=== PATIENT | female | born 1990 | race Caucasian/White ===

== ENCOUNTER 2021-07-18 00:22 | Inpatient (IN) | payer BC, OTHER ==
[2021-07-18] MEDS ORDERED: Acetaminophen 325 MG Tab PO PRN ×2 (00:36→17:33)
[2021-07-18] MEDS ORDERED: Lactated Ringers 1,000 ML IV SCH (00:45)
[2021-07-18] MEDS ORDERED: Nalbuphine 10 MG/1 ML Vial IM ONE ×2 (01:06→11:15)
[2021-07-18] MEDS ORDERED: Misoprostol 400 MCG (4 X 100 MCG TAB) RECTAL PRN ×2 (01:08→17:33)
[2021-07-18] MEDS ORDERED: Methylergonovine 0.2 MG/1 ML Amp IM PRN (01:08)
[2021-07-18] MEDS ORDERED: Tranexamic Acid 1,000 MG in Sodium Chloride 0.9% 100 ML IV PRN ×2 (01:08→17:33)
[2021-07-18] MEDS ORDERED: Lactated Ringers 1,000 ML IV ONE (01:08)
[2021-07-18] MEDS ORDERED: Lidocaine 1% 30 ML SDV INJECT PRN (01:08)
[2021-07-18] MEDS ORDERED: Carboprost Tromethamine 250 MCG/1 ML Amp IM PRN ×2 (01:08→17:33)
[2021-07-18] MEDS: Misoprostol 25 MCG (1/4 of 100 MCG) Tab VAG PRN ×2 (01:25→05:29)
[2021-07-18] MEDS ORDERED: Calcium Carbonate 500 MG Tab.Chew PO PRN (02:23)
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
[2021-07-18] MEDS: Lactated Ringers 1,000 ML IV SCH ×3 (09:56→15:45)
[2021-07-18] MEDS: Oxytocin/Normal Saline 30 UNIT/500 ML BAG IV SCH ×2 (09:57→19:15)
[2021-07-18] MEDS: Sodium Chloride 0.9% 10 ML Syringe FLUSH SCH ×2 (11:47→22:41)
[2021-07-18] MEDS: Ondansetron 4 MG/2 ML SDV IVPUSH PRN ×2 (12:19→16:05)
[2021-07-18] MEDS ORDERED: fentaNYL 100 MCG/2 ML SDV ONE ×2 (12:35→16:14)
[2021-07-18] MEDS ORDERED: EPINEPHrine 1 MG/ML SDV ONE ×2 (12:36→16:15)
--- NOTE | 2021-07-18 13:30 | PCM.PRNOTE ---
- Free Text/Narrative Note: Requested to provide analgesia to full term patient in severe pain. Upon entering the room, patient is sitting on edge of bed complaining of severe abdominal/pelvic pain and discomfort. Procedure was discussed with patient including adverse outcomes and expectations. Pt consented to analgesia, SAB/IT. Pt placed into a proper sitting position. Landmarks for SAB/IT were identified and marked. Hands were washed and appropriate PPE was applied. Back was prepped with betadine x3. A sterile, transparent, fenestrated drape was applied. Excess betadine was removed. Using 3 mL of a 1% lidocaine solution, a skin wheel was placed at the L2/L3 interspace. A 24 ga (4 inch) Pencan spinal needle was inserted until positive for CSF. Negative for heme or paresthesias. Injected fentanyl 30 mcg, sufentanil 25 mcg, and 7.5 mg of a 0.75% bupivacaine solution with an epi wash. Pt was placed left lateral tilt position for approximately 20 minutes. There were zero complications or adverse outcomes. Will continue to monitor. Procedure Date & Time: 07/18/2021 [id number]
[2021-07-18] MEDS ORDERED: fentaNYL 100 MCG/2 ML SDV IVPUSH ONE (15:30)
--- NOTE | 2021-07-18 16:57 | PCM.PRNOTE ---
- Free Text/Narrative Note: Requested to provide analgesia to full term patient in severe pain. Upon entering the room, patient is sitting on edge of bed complaining of severe abdominal/pelvic pain and discomfort. Procedure was discussed with patient including adverse outcomes and expectations. Pt consented to analgesia, SAB/IT. Pt placed into a proper sitting position. Landmarks for SAB/IT were identified and marked. Hands were washed and appropriate PPE was applied. Back was prepped with betadine x3. A sterile, transparent, fenestrated drape was applied. Excess betadine was removed. Using 3 mL of a 1% lidocaine solution, a skin wheel was placed at the L2/L3 interspace. A 24 ga (4 inch) Pencan spinal needle was inserted until positive for CSF. Negative for heme or paresthesias. Injected fentanyl 20 mcg, sufentanil 25 mcg, and 9 mg of a 0.75% bupivacaine solution with an epi wash. Pt was placed left lateral tilt position for approximately 20 minutes. There were zero complications or adverse outcomes. Will continue to monitor. Procedure Date & Time:
[2021-07-18] MEDS ORDERED: Simethicone 80 MG Tab.Chew PO PRN (17:33)
[2021-07-18] MEDS ORDERED: Oxytocin 10 Units/1 ML SDV IM PRN (17:33)
[2021-07-18] MEDS ORDERED: Docusate Sodium 100 MG Cap PO PRN (17:33)
[2021-07-18] MEDS ORDERED: Benzocaine/Menthol 20%-0.5% Spray 78 GM Cannister TOP PRN (17:33)
--- NOTE | 2021-07-18 18:12 | PCM.DEL ---
L & D Note - General Info Date of Service: 07/18/21 Mother's Due Date: 07/24/21 - Delivery Note Labor: Augmented by ARM, Augmented by Oxytocin, Induced by Oxytocin Cervical Ripening Method: Misoprostil Delivery Outcome: Livebirth Infant Delivery Method: Spontaneous Vaginal Delivery-Single Infant Delivery Mode: Spontaneous Presentation: Left Occiput Anterior (SHARMIN) Nuchal Cord: Present (Loose nuchal, reduced after delivery), Reduced Anesthesia Type: Intrathecal Amniotic Fluid Description: Clear Episiotomy Type: None Laceration: 1st Degree (Left mediolateral perineal tear repaired by single figure of 8 stitch with 3-0 vicryl. ), Perineal Suture type: Vicryl Suture size: 3-0 Placenta: Intact, Spontaneous Cord: 3 Vessels Estimated Blood Loss: 350 Resuscitation Needed: Yes [place]: Bulb Syringe, Stimulated, Warmed Provider: Diane Cunningham Score 1 min: 3 (4 breaths PPV given) Score 5 min: 9 Second Stage Interventions: Reports: Encouragement Given, Laboring Down, Pushing Effectively, Pushing, Stirrups/Leg Supports Delivery Comments (Free Text/Narrative):: Date: 07/18/2020 at 1704 Attending: Dr. Diane Cunningham 1st Assist: XIMENA Taylor Brief History: Soledad is a 31yo G2, now P2002, presenting at 39 and 1/7ths gestational age for induction of labor due to macrosomia. GBS negative. Blood type A Negative. Rhogam given 04/28/2021, Antibody screen negative at that time. All infectious labs negative. complications include obesity, i mpaired glucose tolerance, macrosomia, maternal Rh negative status, and mild Anemia of . Soledad was brought in at approximately midnight for planned IOL. Vaginal cytotec placed following favorable krishnan score, at 0130, second dose placed at 0530. Labored in the tub for about 30 minutes, before Pitocin was started at 0945. Nubaine 20mg IM given at approximately 11am for increasing contraction pain. Intrathecal analgesia given when patient approx. 5cm dilated at about 1245. Artificial Rupture of Membranes performed at 1310 with clear fluid and head confirmed to be well applied to cervix. Second intrathecal administered at approximately 1650 and patient was found to be complete and delivered at 1704. Stage I labor about 7 hours, Stage II 14 min. Stage III 3 min. Delivery: With patient in dorsal lithotomy position, she delivered a viable female in the SHARMIN position over intact perineum. Patient pushed through 4 contractions, with spontaneous vaginal delivery of a live female infant at 1704, followed by slow delivery of anterior shoulder and rest of with a single loose nuchal cord noted, reduced following delivery, and terminal mec noted. Infant brought immediately to mother's chest. 3-vessel umbilical cord was immediately double clamped and cut, approx. 10ml of cord blood collected. Infant without spontaneous cry, so she was taken to the warmer and 4 breaths of PPV given for resuscitation. Following resuscitation, [id number] initiated and damon hour protected. Apgars of 3 and 9 and 1 and 5 minutes, respectively. Weight 4420g. Length 20.75in Head circumference 14.5in Chest 14.5 in. Abdominal girth 14in. Delivery of intact placenta at approximately 1507 by gentle cord traction and concomitant uterine massage. Labia and vagina inspected, first degree laceration noted at left mediolateral perineum, repaired with a single figure of 8 stitch using 3-0 vicryl, adequate analgesia supplied via intrathecal. EBL: 350 ml. Mother and baby to stay in room to continue [id number] and initiate . - General Info Date of Service: 07/18/21 - Patient Data Vitals - Most Recent: Last Vital Signs Temp 97.8 F 07/18/21 14:45 Pulse 72 07/18/21 16:15 Resp 20 07/18/21 16:15 BP 131/78 07/18/21 16:15 Pulse Ox 97 07/18/21 13:45 Weight - Most Recent: 84.368 kg Lab Results Last 24 Hours: Laboratory Results - last 24 hr 07/18/21 07/18/21 Range/Units 00:35 01:05 WBC 12.3 H (5.0-10.0) 10^3/uL RBC 4.51 (4.2-5.4) 10^6/uL Hgb 11.4 L (12.0-16.0) g/dL Hct 35.7 L (37.0-47.0) % MCV 79.2 L D (80-100) fL MCH 25.3 L (27.0-34.0) pg MCHC 31.9 L (33.0-35.0) g/dL Plt Count 250 (150-450) 10^3/uL SARS-CoV-2 RNA ([place]) Negative (NEGATIVE) Med Orders - Current: Current Medications Acetaminophen (Acetaminophen 325 Mg Tab) 650 mg PO Q6H PRN PRN Reason: Pain/Fever Benzocaine/Menthol (Benzocaine/Menthol 20%-0.5% [place] 78 Gm Cannister) 0 gm TOP Q4H PRN PRN Reason: Perineal comfort measures Calcium Carbonate/Glycine (Calcium Carbonate 500 Mg Tab.Chew) 1,000 mg PO Q2H PRN PRN Reason: Heartburn Last Admin: 07/18/21 02:34 Dose: 1,000 mg Documented by: Carboprost Tromethamine (Carboprost Tromethamine 250 Mcg/1 Ml Amp) 250 mcg IM ASDIRECTED PRN PRN Reason: Excessive vaginal bleeding Docusate Sodium (Docusate Sodium 100 Mg Cap) 100 mg PO BID PRN PRN Reason: Constipation Lactated Ringer's (Ringers, Lactated) 1,000 mls @ 125 mls/hr IV ASDIRECTED HIRAL Last Admin: 07/18/21 15:45 Dose: 125 mls/hr Documented by: Tranexamic Acid 1,000 mg/ (Sodium Chloride) 110 mls @ 660 mls/hr IV ONETIME PRN PRN Reason: Bleeding Ibuprofen (Ibuprofen 800 Mg Tab) 800 mg PO Q8H PRN PRN Reason: Cramping Lidocaine HCl (Lidocaine 1% 30 Ml Sdv) 30 ml INJECT ASDIRECTED PRN PRN Reason: Perineal Repair Methylergonovine Maleate (Methylergonovine 0.2 Mg/1 Ml Amp) 0.2 mg IM ASDIRECTED PRN PRN Reason: Hemorrhage Misoprostol (Misoprostol 400 Mcg (4 X 100 Mcg Tab)) 800 mcg RECTAL ONETIME PRN PRN Reason: Hemorrhage Ondansetron HCl (Ondansetron 4 Mg/2 Ml Sdv) 4 mg IVPUSH Q4H PRN PRN Reason: Nausea/Vomiting Last Admin: 07/18/21 16:05 Dose: 4 mg Documented by: Oxytocin (Oxytocin 10 Units/1 Ml Sdv) 10 unit IM ONETIME PRN PRN Reason: Bleeding Prenat Multivit/Bulb Filler/Iron/Folic Ac ( Multivitamin With Calcium/Folic Acid/Iron Tab) 1 each PO DAILY HIRAL Simethicone (Simethicone 80 Mg Tab.Chew) 80 mg PO Q4H PRN PRN Reason: Gas Sodium Chloride (Sodium Chloride 0.9% 10 Ml Syringe) 10 ml FLUSH 0900,2100 HIRAL Last Admin: 07/18/21 11:47 Dose: Not Given Documented by: Discontinued Medications Acetaminophen (Acetaminophen 325 Mg Tab) 650 mg PO Q4H PRN PRN Reason: Pain/Fever Carboprost Tromethamine (Carboprost Tromethamine 250 Mcg/1 Ml Amp) 250 mcg IM ASDIRECTED PRN PRN Reason: HEMORRHAGE Epinephrine HCl (Epinephrine 1 Mg/Ml Sdv) Confirm Administered Dose 1 mg .ROUTE .STK-MED ONE Stop: 07/18/21 12:37 Last Admin: 07/18/21 12:47 Dose: Not Given Documented by: Epinephrine HCl (Epinephrine 1 Mg/Ml Sdv) Confirm Administered Dose 1 mg .ROUTE .STK-MED ONE Stop: 07/18/21 16:16 Fentanyl (Fentanyl 100 Mcg/2 Ml Sdv) Confirm Administered Dose 100 mcg .ROUTE .STK-MED ONE Stop: 07/18/21 12:36 Last Admin: 07/18/21 12:47 Dose: Not Given Documented by: Fentanyl (Fentanyl 100 Mcg/2 Ml Sdv) 100 mcg IVPUSH ONETIME ONE; Protocol Stop: 07/18/21 15:31 Last Admin: 07/18/21 15:42 Dose: 100 mcg Documented by: Fentanyl (Fentanyl 100 Mcg/2 Ml Sdv) Confirm Administered Dose 100 mcg .ROUTE .STK-MED ONE Stop: 07/18/21 16:15 Lactated Ringer's (Ringers, Lactated) 1,000 mls @ 9,999 mls/hr IV ASDIRECTED HIRAL Oxytocin/Sodium Chloride (Pitocin In Ns 30 Unit/500 Ml) 30 unit in 500 mls @ 2 mls/hr IV TITRATE HIRAL; Protocol Last Titration: 07/18/21 17:25 Dose: 250 munits/min, 250 mls/hr Documented by: Lactated Ringer's (Ringers, Lactated) 1,000 mls @ 9,999 mls/hr IV BOLUS ONE Stop: 07/18/21 01:13 Tranexamic Acid 1,000 mg/ (Sodium Chloride) 110 mls @ 660 mls/hr IV ONETIME PRN PRN Reason: Bleeding Misoprostol (Misoprostol 400 Mcg (4 X 100 Mcg Tab)) 800 mcg RECTAL ASDIRECTED PRN PRN Reason: Hemorrhage Misoprostol (Misoprostol 25 Mcg (1/4 Of 100 Mcg) Tab) 25 mcg VAG Q4H PRN PRN Reason: Other Last Admin: 07/18/21 05:29 Dose: 25 mcg Documented by: Nalbuphine HCl (Nalbuphine 10 Mg/1 Ml Vial) 20 mg IM ONETIME ONE Stop: 07/18/21 11:16 Last Admin: 07/18/21 11:20 Dose: 20 mg Documented by: Sufentanil Citrate (Sufentanil 50 Mcg/1 Ml Amp) Confirm Administered Dose 50 mcg .ROUTE .STK-MED ONE Stop: 07/18/21 12:37 Last Admin: 07/18/21 12:47 Dose: Not Given Documented by: Sufentanil Citrate (Sufentanil 50 Mcg/1 Ml Amp) Confirm Administered Dose 50 mcg .ROUTE .[employer]-MED ONE Stop: 07/18/21 16:16 - Problem List & Annotations (1) First degree perineal laceration during delivery, delivered SNOMED Code(s): 109408049, 377118879 Code(s): O70.0 - FIRST DEGREE PERINEAL LACERATION DURING DELIVERY Status: Acute Current Visit: Yes (2) Anemia affecting in third trimester SNOMED Code(s): 26531289, 55348338 Code(s): O99.013 - ANEMIA COMPLICATING , THIRD TRIMESTER Status: Acute Current Visit: Yes (3) macrosomia during in third trimester SNOMED Code(s): 628335654, 623749179 Code(s): O36.63X0 - MATERNAL CARE FOR EXCESS GROWTH, THIRD TRIMESTER, UNSP Status: Acute Current Visit: Yes (4) History of delivery by vacuum extraction, currently SNOMED Code(s): 909202121, 165310684 Code(s): O09.299 - SUPRVSN OF PREG W POOR REPRODCTV OR OBSTET HISTORY, UNSP TRI Status: Acute Current Visit: Yes (5) Impaired glucose in , antepartum SNOMED Code(s): 029051655, 822410027 Code(s): O99.810 - ABNORMAL GLUCOSE COMPLICATING Status: Acute Current Visit: Yes (6) Rh negative, maternal SNOMED Code(s): 303069910 Code(s): O26.899 - OTH RELATED CONDITIONS, UNSPECIFIED TRIMESTER; Z67.91 - UNSPECIFIED BLOOD TYPE, RH NEGATIVE Status: Acute Current Visit: Yes Annotation/Comment:: Rhogam given 04/28/2021 - Problem List Review Problem List Initiated/Reviewed/Updated: Yes - My Orders Last 24 Hours: My Active Orders 07/18/21 00:36 Patient Status [ADT] Routine Up ad Batsheva [RC] PER UNIT ROUTINE Vaginal Exam [RC] PRN 07/18/21 00:39 Peripheral IV Care [RC] Q4HR 07/18/21 01:08 Lidocaine 1% [Xylocaine-MPF 1%] 30 ml INJECT ASDIRECTED PRN Methylergonovine [Methergine] 0.2 mg IM ASDIRECTED PRN Ondansetron [Zofran] 4 mg IVPUSH Q4H PRN Saline Lock Insert [OM.PC] Routine 07/18/21 01:15 Lactated Ringers [Ringers, Lactated] 1,000 ml IV ASDIRECTED 07/18/21 09:00 Sodium Chloride 0.9% [Saline Flush] 10 ml FLUSH 0900,2100 07/18/21 17:25 Resuscitation Status Routine 07/18/21 17:33 Acetaminophen [TylenoL] 650 mg PO Q6H PRN Benzocaine/Menthol [Dermoplast Pain Relief 20%-0.5% [place]] See Dose Instructions TOP Q4H PRN Carboprost Tromethamine [Hemabate DS] 250 mcg IM ASDIRECTED PRN Docusate Sodium [Colace] 100 mg PO BID PRN Ibuprofen [Motrin] 800 mg PO Q8H PRN Oxytocin [Pitocin] 10 unit IM ONETIME PRN Simethicone 80 mg PO Q4H PRN Tranexamic Acid [Cyklokapron] 1,000 mg Sodium Chloride 0.9% [Normal Saline] 100 ml IV ONETIME miSOPROStoL [Cytotec] 800 mcg RECTAL ONETIME PRN 07/18/21 17:33 Notify Provider Vital Signs OB [RC] ASDIRECTED Up ad Batsheva [RC] ASDIRECTED Vital Signs [RC] PFP Assess Lochia [WOMSER] Per Unit Routine Assess Uterine Involution [WOMSER] Per Unit Routine Breast Pump [WOMSER] Per Unit Routine Ice Therapy [OM.PC] Per Unit Routine Perineal Care [OM.PC] Per Unit Routine Saline Lock Insert [OM.PC] Urgent Sitz Bath [OM.PC] Per Unit Routine 07/19/21 06:00 CBC W/O DIFF,HEMOGRAM [HEME] Routine 07/19/21 Breakfast Regular Diet [DIET] 07/19/21 09:00 Vit with Ca/FA/Iron [ Plus Iron] 1 each PO DAILY
[2021-07-18] MEDS: Ibuprofen 800 MG Tab PO PRN (20:45)
[2021-07-19] MEDS: Ibuprofen 800 MG Tab PO PRN (04:22)
[2021-07-19] MEDS ORDERED: Prenatal Multivitamin with Calcium/Folic Acid/Iron Tab PO SCH (09:00)
[2021-07-19] MEDS: Sodium Chloride 0.9% 10 ML Syringe FLUSH SCH (09:26)
[2021-07-19] MEDS ORDERED: Ketorolac 10 MG Tab PO ONE (09:56)
--- NOTE | 2021-07-19 10:31 | PCM.PNPP ---
- General Info Date of Service: 07/19/21 Subjective Update: Soledad is up caring for infant this morning. Relays no acute overnight events, does complain of lots of abdominal cramping, not well controlled with motrin and tylenol. She is tolerating diet, ambulating well, voiding appropriately, passing flatus, no bowel movement yet. Normal lochia without clots or excessive bleeding. She is attempting breast feedings every 2-3 hours, except overnight, when she requested nursing to do one overnight feed, and bring the infant back for the next feeding. Milk not yet in, colostrum present, infant latching well at the breast. on ROS Soledad denies head aches, vision changes, fevers, chills, chest pain, sob, RUQ pain, nausea, vomiting. Endorses lower extremity edema. - Review of Systems Systems Review Comment:: As above - Patient Data Vital Signs - Most Recent: Last Vital Signs Temp 98.2 F 07/19/21 08:00 Pulse 62 07/18/21 19:45 Resp 16 07/19/21 08:00 BP 111/63 07/19/21 08:00 Pulse Ox 100 07/18/21 16:38 Weight - Most Recent: 84.368 kg I&O - Last 24 Hours: Intake & Output 07/18/21 07/19/21 07/19/21 22:59 06:59 14:59 Intake Total 3000 Balance 3000 Lab Results - Last 24 Hours: Laboratory Results - last 24 hr 07/19/21 Range/Units 06:20 WBC 13.7 H (5.0-10.0) 10^3/uL RBC 4.16 L (4.2-5.4) 10^6/uL Hgb 10.5 L (12.0-16.0) g/dL Hct 33.5 L (37.0-47.0) % MCV 80.5 (80-100) fL MCH 25.2 L (27.0-34.0) pg MCHC 31.3 L (33.0-35.0) g/dL Plt Count 194 (150-450) 10^3/uL Med Orders - Current: Current Medications Acetaminophen (Acetaminophen 325 Mg Tab) 650 mg PO Q6H PRN PRN Reason: Pain/Fever Last Admin: 07/19/21 06:18 Dose: 650 mg Documented by: Benzocaine/Menthol (Benzocaine/Menthol 20%-0.5% [place] 78 Gm Cannister) 0 gm TOP Q4H PRN PRN Reason: Perineal comfort measures Last Admin: 07/18/21 20:46 Dose: 1 spray Documented by: Calcium Carbonate/Glycine (Calcium Carbonate 500 Mg Tab.Chew) 1,000 mg PO Q2H PRN PRN Reason: Heartburn Last Admin: 07/18/21 02:34 Dose: 1,000 mg Documented by: Carboprost Tromethamine (Carboprost Tromethamine 250 Mcg/1 Ml Amp) 250 mcg IM ASDIRECTED PRN PRN Reason: Excessive vaginal bleeding Docusate Sodium (Docusate Sodium 100 Mg Cap) 100 mg PO BID PRN PRN Reason: Constipation Last Admin: 07/19/21 09:26 Dose: 100 mg Documented by: Lactated Ringer's (Ringers, Lactated) 1,000 mls @ 125 mls/hr IV ASDIRECTED HIRAL Last Admin: 07/18/21 15:45 Dose: 125 mls/hr Documented by: Tranexamic Acid 1,000 mg/ (Sodium Chloride) 110 mls @ 660 mls/hr IV ONETIME PRN PRN Reason: Bleeding Ibuprofen (Ibuprofen 800 Mg Tab) 800 mg PO Q8H PRN PRN Reason: Cramping Last Admin: 07/19/21 04:22 Dose: 800 mg Documented by: Ketorolac Tromethamine (Ketorolac 10 Mg Tab) 10 mg PO ONETIME ONE Stop: 07/19/21 09:57 Lidocaine HCl (Lidocaine 1% 30 Ml Sdv) 30 ml INJECT ASDIRECTED PRN PRN Reason: Perineal Repair Methylergonovine Maleate (Methylergonovine 0.2 Mg/1 Ml Amp) 0.2 mg IM ASDIRECTED PRN PRN Reason: Hemorrhage Misoprostol (Misoprostol 400 Mcg (4 X 100 Mcg Tab)) 800 mcg RECTAL ONETIME PRN PRN Reason: Hemorrhage Ondansetron HCl (Ondansetron 4 Mg/2 Ml Sdv) 4 mg IVPUSH Q4H PRN PRN Reason: Nausea/Vomiting Last Admin: 07/18/21 16:05 Dose: 4 mg Documented by: Oxytocin (Oxytocin 10 Units/1 Ml Sdv) 10 unit IM ONETIME PRN PRN Reason: Bleeding Prenat Multivit/[place]/Iron/Folic Ac ( Multivitamin With Calcium/Folic Acid/Iron Tab) 1 each PO DAILY HIRAL Last Admin: 07/19/21 09:26 Dose: 1 each Documented by: Simethicone (Simethicone 80 Mg Tab.Chew) 80 mg PO Q4H PRN PRN Reason: Gas Sodium Chloride (Sodium Chloride 0.9% 10 Ml Syringe) 10 ml FLUSH 0900,2100 HIRAL Last Admin: 07/19/21 09:26 Dose: Not Given Documented by: Discontinued Medications Acetaminophen (Acetaminophen 325 Mg Tab) 650 mg PO Q4H PRN PRN Reason: Pain/Fever Carboprost Tromethamine (Carboprost Tromethamine 250 Mcg/1 Ml Amp) 250 mcg IM ASDIRECTED PRN PRN Reason: HEMORRHAGE Epinephrine HCl (Epinephrine 1 Mg/Ml Sdv) Confirm Administered Dose 1 mg .ROUTE .STK-MED ONE Stop: 07/18/21 12:37 Last Admin: 07/18/21 12:47 Dose: Not Given Documented by: Epinephrine HCl (Epinephrine 1 Mg/Ml Sdv) Confirm Administered Dose 1 mg .ROUTE .STK-MED ONE Stop: 07/18/21 16:16 Last Admin: 07/18/21 19:04 Dose: Not Given Documented by: Fentanyl (Fentanyl 100 Mcg/2 Ml Sdv) Confirm Administered Dose 100 mcg .ROUTE .STK-MED ONE Stop: 07/18/21 12:36 Last Admin: 07/18/21 12:47 Dose: Not Given Documented by: Fentanyl (Fentanyl 100 Mcg/2 Ml Sdv) 100 mcg IVPUSH ONETIME ONE; Protocol Stop: 07/18/21 15:31 Last Admin: 07/18/21 15:42 Dose: 100 mcg Documented by: Fentanyl (Fentanyl 100 Mcg/2 Ml Sdv) Confirm Administered Dose 100 mcg .ROUTE .STK-MED ONE Stop: 07/18/21 16:15 Last Admin: 07/18/21 20:59 Dose: Not Given Documented by: Lactated Ringer's (Ringers, Lactated) 1,000 mls @ 9,999 mls/hr IV ASDIRECTED HIRAL Oxytocin/Sodium Chloride (Pitocin In Ns 30 Unit/500 Ml) 30 unit in 500 mls @ 2 mls/hr IV TITRATE HIRAL; Protocol Last Titration: 07/18/21 20:15 Dose: 0 munits/min, 0 mls/hr Documented by: Lactated Ringer's (Ringers, Lactated) 1,000 mls @ 9,999 mls/hr IV BOLUS ONE Stop: 07/18/21 01:13 Last Admin: 07/18/21 20:59 Dose: Not Given Documented by: Tranexamic Acid 1,000 mg/ (Sodium Chloride) 110 mls @ 660 mls/hr IV ONETIME PRN PRN Reason: Bleeding Misoprostol (Misoprostol 400 Mcg (4 X 100 Mcg Tab)) 800 mcg RECTAL ASDIRECTED PRN PRN Reason: Hemorrhage Misoprostol (Misoprostol 25 Mcg (1/4 Of 100 Mcg) Tab) 25 mcg VAG Q4H PRN PRN Reason: Other Last Admin: 07/18/21 05:29 Dose: 25 mcg Documented by: Nalbuphine HCl (Nalbuphine 10 Mg/1 Ml Vial) 20 mg IM ONETIME ONE Stop: 07/18/21 11:16 Last Admin: 07/18/21 11:20 Dose: 20 mg Documented by: Sufentanil Citrate (Sufentanil 50 Mcg/1 Ml Amp) Confirm Administered Dose 50 mcg .ROUTE .STK-MED ONE Stop: 07/18/21 12:37 Last Admin: 07/18/21 12:47 Dose: Not Given Documented by: Sufentanil Citrate (Sufentanil 50 Mcg/1 Ml Amp) Confirm Administered Dose 50 mcg .ROUTE .STK-MED ONE Stop: 07/18/21 16:16 Last Admin: 07/18/21 20:59 Dose: Not Given Documented by: - Interaction Disposition, : [place] in Room with Family Infant Interaction: Holding Infant Infant Feeding: Attempted ; Nursed Fair/Poor, Other (see below) ( with food latch and suck, awaiting mother's milk. ) Support Person: - Recovery Exam Fundal Tone: Firm Fundal Level: At Umbilicus Fundal Placement: Midline Lochia Amount: Moderate Lochia Color: Rubra/Red Perineum Description: Intact, Minimal Bruising/Swelling Episiotomy/Laceration: Approximated Bladder Status: Voiding Urinary Elimination: Voided - Exam General: Alert, Oriented, No Acute Distress HEENT: Pupils Equal, Pupils Reactive, Mucous Membr. Moist/[place] Neck: Supple Lungs: Clear to Auscultation, Normal Respiratory Effort Cardiovascular: Regular Rate, Regular Rhythm GI/Abdominal Exam: Normal Bowel Sounds, Soft, Other (Fundal exam as above) Extremities: Normal Range of Motion, Normal Capillary Refill, Pedal Edema (1+ pitting edema in bilateral lower extremities) Skin: Warm, Dry, Intact Neurological: No New Focal Deficit, Normal Gait, Normal Speech, Other (no clonus) Psy/Mental Status: Alert, Normal Affect, Normal Mood - Problem List & Annotations (1) First degree perineal laceration during delivery, delivered SNOMED Code(s): 745927852, 317375990 Code(s): O70.0 - FIRST DEGREE PERINEAL LACERATION DURING DELIVERY Status: Acute Current Visit: Yes (2) Anemia affecting in third trimester SNOMED Code(s): 78300283, 69387988 Code(s): O99.013 - ANEMIA COMPLICATING , THIRD TRIMESTER Status: Acute Current Visit: Yes (3) macrosomia during in third trimester SNOMED Code(s): 968680833, 760614459 Code(s): O36.63X0 - MATERNAL CARE FOR EXCESS GROWTH, THIRD TRIMESTER, UNSP Status: Acute Current Visit: Yes (4) History of delivery by vacuum extraction, currently SNOMED Code(s): 908648292, 153138906 Code(s): O09.299 - SUPRVSN OF PREG W POOR REPRODCTV OR OBSTET HISTORY, UNSP TRI Status: Acute Current Visit: Yes Annotation/Comment:: Delivered (5) Impaired glucose in , antepartum SNOMED Code(s): 303111466, 331000934 Code(s): O99.810 - ABNORMAL GLUCOSE COMPLICATING Status: Acute Current Visit: Yes (6) Rh negative, maternal SNOMED Code(s): 199617381 Code(s): O26.899 - OTH RELATED CONDITIONS, UNSPECIFIED TRIMESTER; Z67.91 - UNSPECIFIED BLOOD TYPE, RH NEGATIVE Status: Acute Current Visit: Yes Annotation/Comment:: Rhogam given 04/28/2021 - Problem List Review Problem List Initiated/Reviewed/Updated: Yes - My Orders Last 24 Hours: My Active Orders 07/18/21 17:25 Resuscitation Status Routine 07/18/21 17:33 Acetaminophen [TylenoL] 650 mg PO Q6H PRN Benzocaine/Menthol [Dermoplast Pain Relief 20%-0.5% [place]] See Dose Instructions TOP Q4H PRN Carboprost Tromethamine [Hemabate DS] 250 mcg IM ASDIRECTED PRN Docusate Sodium [Colace] 100 mg PO BID PRN Ibuprofen [Motrin] 800 mg PO Q8H PRN Oxytocin [Pitocin] 10 unit IM ONETIME PRN Simethicone 80 mg PO Q4H PRN Tranexamic Acid [Cyklokapron] 1,000 mg Sodium Chloride 0.9% [Normal Saline] 100 ml IV ONETIME miSOPROStoL [Cytotec] 800 mcg RECTAL ONETIME PRN 07/18/21 17:33 Notify Provider Vital Signs OB [RC] ASDIRECTED Vital Signs [RC] 08,20 Assess Lochia [WOMSER] Per Unit Routine Assess Uterine Involution [WOMSER] Per Unit Routine Breast Pump [WOMSER] Per Unit Routine Ice Therapy [OM.PC] Per Unit Routine Perineal Care [OM.PC] Per Unit Routine Saline Lock Insert [OM.PC] Urgent Sitz Bath [OM.PC] Per Unit Routine 07/19/21 Breakfast Regular Diet [DIET] 07/19/21 09:00 Vit with Ca/FA/Iron [ Plus Iron] 1 each PO DAILY - Plan Plan:: Pain not well controlled with motrin and tylenol, will give toradol this morning and hold motrin for 24 hours. Suspect bilateral extremity edema due to volume of IV fluids, no other s/s of post pre-eclampsia, will continue to monitor. Not yet producing milk, colostrum present and infant latching and sucking well - may delay discharge to tomorrow to support patient in and ensure pain is well controlled.
[2021-07-19] MEDS ORDERED: EPINEPHrine 1 MG/ML SDV ONE ×2 (13:13→14:41)
[2021-07-19] MEDS ORDERED: fentaNYL 100 MCG/2 ML SDV ITHECAL ONE ×2 (13:13→14:41)
--- NOTE | 2021-07-20 17:13 | PCM.DCSUM1 ---
Discharge Summary - Hospital Course Free Text/Narrative:: Soledad is a 31yo G2, now P2002, who presented at 39 and 1/7ths weeks gestational age for induction of labor due to concern for macrosomia. GBS negative. Blood type A Negative. Rhogam given , Antibody screen negative at that time. All infectious labs negative. complications include obesity, impaired glucose tolerance, macrosomia, maternal Rh negative status, and mild Anemia of . - Discharge Data Discharge Date: 07/19/21 Discharge Disposition: Home, Self-Care 01 Condition: Good - Referral to Home Health Primary Care Physician: Hawa Cunningham MD - Discharge Diagnosis/Problem(s) (1) First degree perineal laceration during delivery, delivered SNOMED Code(s): 933943116, 914865211 ICD Code: O70.0 - FIRST DEGREE PERINEAL LACERATION DURING DELIVERY Status: Acute (2) Anemia affecting in third trimester SNOMED Code(s): 24286446, 51875585 ICD Code: O99.013 - ANEMIA COMPLICATING , THIRD TRIMESTER Status: Acute (3) History of delivery by vacuum extraction, currently SNOMED Code(s): 617870044, 061416373 ICD Code: O09.299 - SUPRVSN OF PREG W POOR REPRODCTV OR OBSTET HISTORY, UNSP TRI Status: Acute Problem Details: Delivered (4) Impaired glucose in , antepartum SNOMED Code(s): 485903222, 292552731 ICD Code: O99.810 - ABNORMAL GLUCOSE COMPLICATING Status: Acute (5) Rh negative, maternal SNOMED Code(s): 476829823 ICD Code: O26.899 - OTH RELATED CONDITIONS, UNSPECIFIED TRIMESTER; Z67.91 - UNSPECIFIED BLOOD TYPE, RH NEGATIVE Status: Acute Problem Details: Rhogam given 04/28/2021 - Patient Summary/Data Operative Procedure(s) Performed: Nonstress test. cytotec induction of labor. pitocin augmentation of labor. Artifical rupture of membranes. Normal Spontaneous vaginal Delivery. Repair of 1st degree perineal laceration Hospital Course: Soledad was brought in at approximately midnight of 07/18/2021 for planned IOL. Vaginal cytotec placed at 0130, second dose placed at 0530. Labored in the tub for about 30 minutes, before Pitocin was started at 0945. Nubaine 20mg IM given at approximately 11am for increasing contraction pain. Intrathecal analgesia given when patient approx. 5cm dilated at about 1245. Artificial Rupture of Membranes performed at 1310 with clear fluid and head confirmed to be well applied to cervix. Second intrathecal administered at approximately 1650 and patient was found to be complete and delivered at 1704. Stage I labor about 7 hours, Stage II 14 min. Stage III 3 min. Soledad delivered a viable female infant at 1504 on 07/18/2021. Infant without spontaneous cry, so she was taken to the warmer and 4 breaths of PPV given for resuscitation. Following resuscitation, [id number] initiated and damon hour protected. Apgars of 3 and 9 and 1 and 5 minutes, respectively. Weight 4420g. Length 20.75in Head circumference 14.5in Chest 14.5 in. Abdominal girth 14in. First degree laceration noted at left mediolateral perineum, repaired with a single figure of 8 stitch using 3-0 vicryl, adequate analgesia supplied via intrathecal. EL: 350 ml. course uncomplicated. Patient tolerated diet, ambulating, voiding appropriately. Passed flatus prior to discharge, no bowel movement. She did have incomplete pain management with motrin and tylenol alone, so toradol given. Infant with good latch and suck, awaiting mother's milk to come in. Prescription for nipple cream provided. - Patient Instructions Diet: Regular Diet as Tolerated Activity: As Tolerated - Discharge Plan *PRESCRIPTION DRUG MONITORING PROGRAM REVIEWED*: Yes *COPY OF PRESCRIPTION DRUG MONITORING REPORT IN PATIENT AMAN: Yes Home Medications: Home Meds Calcium Carbonate [Calcium] 500 mg PO DAILY 01/15/19 [History] Cyanocobalamin/Folic Acid [Vitamin C48-[place] Acid] 1 tab PO DAILY 01/15/19 [History] Ferrous Sulfate 325 mg PO BIDMEALS 01/15/19 [History] Fish Oil/[place]-3 Fatty Acids [Fish Oil] 1,000 mg PO DAILY 01/15/19 [History] Pnv No.95/Ferrous Fum/Folic AC [ Vitamin Tablet] 1 each PO DAILY 01/15/19 [History] Zinc Gluconate [Zinc] 30 mg PO DAILY 01/15/19 [History] Patient Handouts: Baby Blues, Care of a Perineal Tear, Care After Vaginal Delivery - Discharge Summary/Plan Comment DC Time >30 min.: No (as per Dr. Cunningham) Total # of Minutes for Discharge Time: As per Dr Cunningham - General Info Date of Service: 07/19/21 Subjective Update: Soledad is up caring for infant this morning. Relays no acute overnight events, does complain of lots of abdominal cramping, not well controlled with motrin and tylenol. She is tolerating diet, ambulating well, voiding appropriately, passing flatus, no bowel movement yet. Normal lochia without clots or excessive bleeding. She is attempting breast feedings every 2-3 hours, except overnight, when she requested nursing to do one overnight feed, and bring the back for the next feeding. Milk not yet in, colostrum present, infant latching well at the breast. on ROS Soledad denies head aches, vision changes, fevers, chills, chest pain, sob, RUQ pain, nausea, vomiting. Endorses lower extremity edema. Functional Status: Reports: Pain Controlled, Tolerating Diet, Ambulating, Urinating. Denies: New Symptoms - Review of Systems Systems Review Comment: as above - Patient Data Vitals - Most Recent: Last Vital Signs Temp 98.2 F 07/19/21 08:00 Pulse 62 07/18/21 19:45 Resp 16 07/19/21 08:00 BP 111/63 07/19/21 08:00 Pulse Ox 100 07/18/21 16:38 Weight - Most Recent: 84.368 kg Med Orders - Current: Current Medications Discontinued Medications Acetaminophen (Acetaminophen 325 Mg Tab) 650 mg PO Q4H PRN PRN Reason: Pain/Fever Acetaminophen (Acetaminophen 325 Mg Tab) 650 mg PO Q6H PRN PRN Reason: Pain/Fever Last Admin: 07/19/21 06:18 Dose: 650 mg Documented by: Benzocaine/Menthol (Benzocaine/Menthol 20%-0.5% [place] 78 Gm Cannister) 0 gm TOP Q4H PRN PRN Reason: Perineal comfort measures Last Admin: 07/18/21 20:46 Dose: 1 spray Documented by: Calcium Carbonate/Glycine (Calcium Carbonate 500 Mg Tab.Chew) 1,000 mg PO Q2H PRN PRN Reason: Heartburn Last Admin: 07/18/21 02:34 Dose: 1,000 mg Documented by: Carboprost Tromethamine (Carboprost Tromethamine 250 Mcg/1 Ml Amp) 250 mcg IM ASDIRECTED PRN PRN Reason: HEMORRHAGE Carboprost Tromethamine (Carboprost Tromethamine 250 Mcg/1 Ml Amp) 250 mcg IM ASDIRECTED PRN PRN Reason: Excessive vaginal bleeding Docusate Sodium (Docusate Sodium 100 Mg Cap) 100 mg PO BID PRN PRN Reason: Constipation Last Admin: 07/19/21 09:26 Dose: 100 mg Documented by: Epinephrine HCl (Epinephrine 1 Mg/Ml Sdv) Confirm Administered Dose 1 mg .ROUTE .STK-MED ONE Stop: 07/18/21 12:37 Last Admin: 07/18/21 12:47 Dose: Not Given Documented by: Epinephrine HCl (Epinephrine 1 Mg/Ml Sdv) Confirm Administered Dose 1 mg .ROUTE .STK-MED ONE Stop: 07/18/21 16:16 Last Admin: 07/18/21 19:04 Dose: Not Given Documented by: Epinephrine HCl (Epinephrine 1 Mg/Ml Sdv) 0.1 mg .XX .STK-MED ONE Stop: 07/19/21 13:14 Epinephrine HCl (Epinephrine 1 Mg/Ml Sdv) 0.1 mg .XX .STK-MED ONE Stop: 07/19/21 14:42 Fentanyl (Fentanyl 100 Mcg/2 Ml Sdv) Confirm Administered Dose 100 mcg .ROUTE .STK-MED ONE Stop: 07/18/21 12:36 Last Admin: 07/18/21 12:47 Dose: Not Given Documented by: Fentanyl (Fentanyl 100 Mcg/2 Ml Sdv) 100 mcg IVPUSH ONETIME ONE; Protocol Stop: 07/18/21 15:31 Last Admin: 07/18/21 15:42 Dose: 100 mcg Documented by: Fentanyl (Fentanyl 100 Mcg/2 Ml Sdv) Confirm Administered Dose 100 mcg .ROUTE .STK-MED ONE Stop: 07/18/21 16:15 Last Admin: 07/18/21 20:59 Dose: Not Given Documented by: Fentanyl (Fentanyl 100 Mcg/2 Ml Sdv) 30 mcg ITHECAL .STK-MED ONE Stop: 07/19/21 13:14 Fentanyl (Fentanyl 100 Mcg/2 Ml Sdv) 20 mcg ITHECAL .STK-MED ONE Stop: 07/19/21 14:42 Lactated Ringer's (Ringers, Lactated) 1,000 mls @ 9,999 mls/hr IV ASDIRECTED HIRAL Oxytocin/Sodium Chloride (Pitocin In Ns 30 Unit/500 Ml) 30 unit in 500 mls @ 2 mls/hr IV TITRATE HIRAL; Protocol Last Titration: 07/18/21 20:15 Dose: 0 munits/min, 0 mls/hr Documented by: Lactated Ringer's (Ringers, Lactated) 1,000 mls @ 9,999 mls/hr IV BOLUS ONE Stop: 07/18/21 01:13 Last Admin: 07/18/21 20:59 Dose: Not Given Documented by: Lactated Ringer's (Ringers, Lactated) 1,000 mls @ 125 mls/hr IV ASDIRECTED HIRAL Last Admin: 07/18/21 15:45 Dose: 125 mls/hr Documented by: Tranexamic Acid 1,000 mg/ (Sodium Chloride) 110 mls @ 660 mls/hr IV ONETIME PRN PRN Reason: Bleeding Tranexamic Acid 1,000 mg/ (Sodium Chloride) 110 mls @ 660 mls/hr IV ONETIME PRN PRN Reason: Bleeding Ibuprofen (Ibuprofen 800 Mg Tab) 800 mg PO Q8H PRN PRN Reason: Cramping Last Admin: 07/19/21 04:22 Dose: 800 mg Documented by: Ketorolac Tromethamine (Ketorolac 10 Mg Tab) 10 mg PO ONETIME ONE Stop: 07/19/21 09:57 Last Admin: 07/19/21 11:38 Dose: 10 mg Documented by: Lidocaine HCl (Lidocaine 1% 30 Ml Sdv) 30 ml INJECT ASDIRECTED PRN PRN Reason: Perineal Repair Methylergonovine Maleate (Methylergonovine 0.2 Mg/1 Ml Amp) 0.2 mg IM ASDIRECTED PRN PRN Reason: Hemorrhage Misoprostol (Misoprostol 400 Mcg (4 X 100 Mcg Tab)) 800 mcg RECTAL ASDIRECTED PRN PRN Reason: Hemorrhage Misoprostol (Misoprostol 25 Mcg (1/4 Of 100 Mcg) Tab) 25 mcg VAG Q4H PRN PRN Reason: Other Last Admin: 07/18/21 05:29 Dose: 25 mcg Documented by: Misoprostol (Misoprostol 400 Mcg (4 X 100 Mcg Tab)) 800 mcg RECTAL ONETIME PRN PRN Reason: Hemorrhage Nalbuphine HCl (Nalbuphine 10 Mg/1 Ml Vial) 20 mg IM ONETIME ONE Stop: 07/18/21 11:16 Last Admin: 07/18/21 11:20 Dose: 20 mg Documented by: Ondansetron HCl (Ondansetron 4 Mg/2 Ml Sdv) 4 mg IVPUSH Q4H PRN PRN Reason: Nausea/Vomiting Last Admin: 07/18/21 16:05 Dose: 4 mg Documented by: Oxytocin (Oxytocin 10 Units/1 Ml Sdv) 10 unit IM ONETIME PRN PRN Reason: Bleeding Prenat Multivit/[place]/Iron/Folic Ac ( Multivitamin With Calcium/Folic Acid/Iron Tab) 1 each PO DAILY [facility] Last Admin: 07/19/21 09:26 Dose: 1 each Documented by: Simethicone (Simethicone 80 Mg Tab.Chew) 80 mg PO Q4H PRN PRN Reason: Gas Sodium Chloride (Sodium Chloride 0.9% 10 Ml Syringe) 10 ml FLUSH 0900,2100 [facility] Last Admin: 07/19/21 09:26 Dose: Not Given Documented by: Sufentanil Citrate (Sufentanil 50 Mcg/1 Ml Amp) Confirm Administered Dose 50 mcg .ROUTE .STK-MED ONE Stop: 07/18/21 12:37 Last Admin: 07/18/21 12:47 Dose: Not Given Documented by: Sufentanil Citrate (Sufentanil 50 Mcg/1 Ml Amp) Confirm Administered Dose 50 mcg .ROUTE .STK-MED ONE Stop: 07/18/21 16:16 Last Admin: 07/18/21 20:59 Dose: Not Given Documented by: Sufentanil Citrate (Sufentanil 50 Mcg/1 Ml Amp) 25 mcg ITHECAL .STK-MED ONE Stop: 07/19/21 13:14 Sufentanil Citrate (Sufentanil 50 Mcg/1 Ml Amp) 25 mcg ITHECAL .STK-MED ONE Stop: 07/19/21 14:42 - Exam General: Reports: Alert, Oriented, No Acute Distress HEENT: Reports: Pupils Equal, Pupils Reactive, EOMI, Mucous Membr. Moist/[place] Lungs: Reports: Clear to Auscultation, Normal Respiratory Effort Cardiovascular: Reports: Regular Rate, Regular Rhythm, No Murmurs GI/Abdominal Exam: Normal Bowel Sounds, Soft, No Distention, No Mass, Other (uterine fundus firm, palpates 2 fingerbreaths below umbilicus) (Female) Exam: Other (appropriate lochia rubra) Back Exam: Reports: Normal Inspection, Full Range of Motion Extremities: Normal Range of Motion, Pedal Edema (trace) Skin: Reports: Warm, Dry, Intact Neurological: Reports: No New Focal Deficit, Normal Tone, Other (no clonus)
== END 2021-07-19 19:00 | disposition home or self-care (01) | DRG 807 ==
LOC: DL.OB 00:22 → OBSVTOIN 00:36 → DL.OB 00:36
PROVIDERS: ADMIT Family Medicine; ATTEND Family Medicine
PROC: 10E0XZZ Delivery of Products of Conception, External Approach (ICD-10-PCS; principal; 2021-07-18)
PROC: 10907ZC Drainage of Amniotic Fluid, Therapeutic from Products of Conception, Via Natural or Artificial Opening (ICD-10-PCS; 2021-07-18)
PROC: 0HQ9XZZ Repair Perineum Skin, External Approach (ICD-10-PCS; 2021-07-18)
PROC: 3E033VJ Introduction of Other Hormone into Peripheral Vein, Percutaneous Approach (ICD-10-PCS; 2021-07-18)
PROC: 3E0R3BZ Introduction of Anesthetic Agent into Spinal Canal, Percutaneous Approach (ICD-10-PCS; 2021-07-18)
PROC: 00HU33Z Insertion of Infusion Device into Spinal Canal, Percutaneous Approach (ICD-10-PCS; 2021-07-18)
DX: O36.63X0 Maternal care for excessive fetal growth, third trimester, not applicable or unspecified (principal); Z37.0 Single live birth; Z3A.39 39 weeks gestation of pregnancy; O99.02 Anemia complicating childbirth; D64.9 Anemia, unspecified; O70.0 First degree perineal laceration during delivery; O99.214 Obesity complicating childbirth; O99.814 Abnormal glucose complicating childbirth; Z20.822 Contact with and (suspected) exposure to COVID-19; Z28.82 Immunization not carried out because of caregiver refusal
CPT/HCPCS: 36415; 59409; 85027; A9270-GY; J0171; J2300; J2405; J2590; J3010; J7120; U0002